=== PATIENT | male | born 1995 | race Caucasian/White ===

== ENCOUNTER 2020-06-15 20:54 | Emergency (ER) | payer OTHER ==
[2020-06-15 21:19] LABS: HEMOGLOBIN 16.3 gm/dl (14.0-17.5); RED BLOOD COUNT 4.68 M/UL (4.20-5.50); WHITE BLOOD COUNT 10.3 K/UL (4.5-11.0)
[2020-06-15 21:40] LABS: BUN/CREATININE RATIO 13 (0-10)
[2020-06-16] MEDS ORDERED: IBUPROFEN600 MG PO (00:15)
== END 2020-06-16 00:21 | disposition home or self-care (01) ==
LOC: ER1 20:54
PROVIDERS: Family Medicine
DX: S40.022A Contusion of left upper arm, initial encounter (principal); R10.11 Right upper quadrant pain; F17.200 Nicotine dependence, unspecified, uncomplicated; V49.50XA Passenger injured in collision with unspecified motor vehicles in traffic accident, initial encounter; Y92.410 Unspecified street and highway as the place of occurrence of the external cause
CPT/HCPCS: 73060; 80053; 81001; 83690; 85025; 99284; Q9967